=== PATIENT | female | born 1985 | race American Indian/Alaskan Native ===

== ENCOUNTER 2017-11-18 10:36 | Day surgery (SDC) | payer MEDICAID ==
--- NOTE | 2017-11-14 14:49 | Anesthesia Consultation ---
Anesthesia Consult and Med Hx Date of service: 11/14/17 - Airway Anesthetic Teeth Evaluation: Good ROM Head & Neck: Adequate Mental/Hyoid Distance: Adequate Mallampati Class: Class I Intubation Access Assessment: Good - Pulmonary Exam CTA: Yes - Cardiac Exam Cardiac Exam: RRR - Pre-Operative Health Status ASA Pre-Surgery Classification: ASA2 Proposed Anesthetic Plan: General - Pulmonary Hx Smoking: Yes (marijuana daily) - Central Nervous System Hx Back Pain: Yes Hx Psychiatric Problems: No - Other Systems Hx Alcohol Use: Yes (OCCAS WINE) Hx Substance Use: Yes (MARIJUANA) Hx Cancer: No
[2017-11-14 15:29] LABS: Basophils % (Auto) 0.6 % (0.0-1.8); Eosinophils # (Auto) 0.1 K/mm3 (0.0-0.4); Eosinophils % (Auto) 0.9 % (0.0-4.3); Hematocrit 42.1 % (30.3-42.9); Hemoglobin 13.4 gm/dl (10.1-14.3); Lymphocytes # (Auto) 1.7 K/mm3 (1.2-5.4); Mean Corpuscular HGB Conc 32 % (30-34); Mean Corpuscular Hemoglobin 26 pg (28-32); Mean Corpuscular Volume 81 fl (79-97); Monocytes # (Auto) 0.5 K/mm3 (0.0-0.8); Monocytes % (Auto) 7.8 % (0.0-7.3); Platelet Count 304 K/mm3 (140-440); Red Blood Count 5.18 M/mm3 (3.65-5.03); Red Cell Distribution Width 12.5 % (13.2-15.2)
[~2017-11-18 10:36] MED LIST: MARCAINE 0.5% INFILTRATI NR; NACL 0.9% 1000 ML 1,000 ML IV SCH; SUBLIMAZE IV NR; VERSED IV NR
[2017-11-18] MEDS ORDERED: ANCEF/STERILE WATER 2 GM/20 ML IV NR (14:32)
[2017-11-18] MEDS ORDERED: VERSED IV NR (15:00)
[2017-11-18] MEDS ORDERED: DIPRIVAN 10 MG/ML IV ONE (16:01)
[2017-11-18] MEDS ORDERED: XYLOCAINE MPF 2% ONE (16:06)
[2017-11-18] MEDS ORDERED: SUBLIMAZE ONE (16:21)
[2017-11-18] MEDS ORDERED: ZOFRAN ONE (17:46)
[2017-11-18] MEDS ORDERED: DILAUDID ONE ×2 (17:46→18:35)
[2017-11-18] MEDS ORDERED: DECADRON ONE (17:46)
--- NOTE | 2017-11-18 18:12 | Discharge Summary ---
Short Stay Discharge Plan Activity: no restrictions Weight Bearing Status: Full Weight Bearing Diet: regular Wound: remove dressing (72hrs) Additional Instructions: PASHA drain care Follow up with: SHANNON LEON MD [Primary Care Provider] - 6 Weeks WORK,JOEL Harvey JR, MD [Staff Physician] - 7 Days
--- NOTE | 2017-11-18 18:14 | Short Stay Summary ---
Short Stay Documentation Date of service: 11/18/17 - Allergies and Medications Current Medications: Allergies No Known Allergies Allergy (Verified 11/13/17 14:32) Home Medications Medication Instructions Recorded Confirmed Last Taken Type No Known Home Medications [No 11/13/17 11/13/17 Unknown History Reported Home Medications] Active Medications Cefazolin Sodium (Ancef/Sterile Water 2 Gm/20 Ml) 2 gm IV PREOP NR Stop: 11/18/17 23:59 Sodium Chloride (Nacl 0.9% 1000 Ml) 1,000 mls @ 42 mls/hr IV DIRECT AURA Last Admin: 11/18/17 14:35 Dose: 42 mls/hr Midazolam HCl (Versed) 2 mg IV PREOP NR Stop: 11/18/17 23:59 Last Admin: 11/18/17 15:30 Dose: 2 mg - Brief post op/procedure progress note Date of procedure: 11/18/17 Pre-op diagnosis: Macromastia Post-op diagnosis: same Procedure: Alfie. Breast Reduction Anesthesia: GETA Findings: [id number] Surgeon: JOEL GARCIA JR Estimated blood loss: none Pathology: none Specimen disposition: to lab Condition: stable - Disposition Condition at discharge: Good Disposition: DC-01 TO HOME OR SELFCARE Short Stay Discharge Plan Additional Instructions: PASAH drain care Follow up with: JOEL GARCIA JR, MD [Staff Physician] - 7 Days SHANNON LEON MD [Primary Care Provider] - 6 Weeks
[2017-11-18] MEDS: DILAUDID IM PRN ×2 (18:35→18:55)
--- NOTE | 2017-11-18 18:38 | Post Anesthesia Evaluation ---
- Post Anesthesia Evaluation Patient Participated: Yes Airway Patent: Yes Stable Respiratory Function: Yes Nausea/Vomiting: No Temp > 96.8F: Yes Pain Manageable: Yes Adequeate Hydration: Yes Anesthesia Complications: No
--- NOTE | 2017-11-18 19:01 | Operative Report ---
PREOPERATIVE DIAGNOSIS: Macromastia. POSTOPERATIVE DIAGNOSIS: Macromastia. PROCEDURE: Bilateral reduction mammoplasty. SURGEON: Michael Anderson MD. COMPOSITION WEATHERBOARD APPLIER: Filiberto Rodriguez CSA. FINDINGS: 920 gm removed from the right breast and 720 gm removed from the left breast. DESCRIPTION OF PROCEDURE: The patient was brought to the operating room and placed on the table in supine position. Following administration of general anesthesia, bilateral breasts were prepped with Betadine solution and draped in usual sterile manner. A #10 blade scalpel was used to make a circumareolar skin incision followed by de-epithelization of inferior dermal pedicle. Modified Starr pattern skin markings were incised with scalpel, deepened through subcutaneous fat and breast tissue using electrocautery. Skin flaps were raised in standard manner as was fashioning of an inferior central mound pedicle. Closure was performed over 10-mm Domo drain using interrupted and running subcuticular 2-0 Monocryl sutures. Mastisol, Steri-Strips, and sterile dressings applied. The patient tolerated the procedure well and returned to recovery room in stable condition. JOB# [id number] FTW/NTS
[2017-11-18 20:16] VITALS: BP 129/77
== END 2017-11-18 10:37 | disposition home or self-care (01) ==
LOC: OR 10:36
PROVIDERS: ATTEND Plastic Surgery
DX: N62 Hypertrophy of breast (principal); Z79.899 Other long term (current) drug therapy
CPT/HCPCS: 19318; 36415; 84703; 85025; 88305; J0690; J1100; J1170; J2250; J2405; J2704; J3010; J7030